=== PATIENT | female | born 1940 | race Caucasian/White ===

== ENCOUNTER 2018-03-05 13:32 | Outpatient (CLI) | payer MEDICARE | END 2018-03-05 13:33 | disposition home or self-care (01) | LOC: BICMAMMO 13:32 | PROVIDERS: ATTEND Internal Medicine | DX: Z12.31 Encounter for screening mammogram for malignant neoplasm of breast (principal); Z85.038 Personal history of other malignant neoplasm of large intestine | CPT/HCPCS: 77063; 77067 ==

== ENCOUNTER 2019-04-06 07:26 | Day surgery (SDC) | payer MEDICARE ==
[2019-04-05 10:54] VITALS: BMI 35.8
--- NOTE | 2019-04-06 11:12 | OP ---
DATE OF PROCEDURE: 04/06/2019 OPERATIVE PROCEDURE: Colonoscopy. PREOPERATIVE DIAGNOSES: A 78-year-old female with a history of colon polyp and previous colonoscopy and polypectomy. She also had a sigmoid colon cancer, status post sigmoid colectomy in 2016. The patient is undergoing followup colonoscopy. POSTOPERATIVE DIAGNOSES: 1. Healthy anastomosis. 2. Mild sigmoid diverticular disease. 3. Hemorrhoids. DESCRIPTION OF PROCEDURE: The patient was placed on her left lateral position and was given sedation by Anesthesia Department. A rectal exam was done before the scope was advanced into the rectum. No lesions felt on rectal exam. A [employer]ax video colonoscope was introduced into the rectum and advanced all the way into the cecum. In the appendicular opening, ileocecal valve, cecum, no pathology seen. The mucosa appears normal throughout the colon with normal vascular pattern. In the appendiceal orifice, ileocecal valve, cecum, no pathology seen. Withdrawal of scope from the cecum to ascending colon, hepatic flexure, no pathology seen. In the transverse colon, splenic flexure, descending colon, no pathology. The anastomotic area appears very healthy. She has few diverticula along the anastomotic area. Rectal hemorrhoids. DISCHARGE PLAN: This is a 78-year-old female with previous colon cancer, status post segmental resection of the colon in 2016. The patient came for a followup colonoscopy. The colonoscopy showed no pathology except for scattered diverticula over the left side and hemorrhoids. DISCHARGE RECOMMENDATION: 1. The patient was advised to call me if she develops abdominal pain, hematochezia. 2. High-fiber diet. 3. Repeat colonoscopy in 10 years. In the absence of any other symptoms, the patient will come back to me in 2 weeks. Job ID: [id number]
[2019-04-06] MEDS ORDERED: PROPOFOL 200 MG/20 ML VIAL ONE (14:26)
== END 2019-04-06 10:50 | disposition home or self-care (01) ==
LOC: SDC 07:26
PROVIDERS: ATTEND Internal Medicine Gastroenterology
PROC: 0DJD8ZZ Inspection of Lower Intestinal Tract, Via Natural or Artificial Opening Endoscopic (ICD-10-PCS; principal; 2019-04-06)
DX: Z12.11 Encounter for screening for malignant neoplasm of colon (principal); K57.30 Diverticulosis of large intestine without perforation or abscess without bleeding; K64.9 Unspecified hemorrhoids; Z85.038 Personal history of other malignant neoplasm of large intestine; Z86.010 Personal history of colon polyps
CPT/HCPCS: 93005; G0105; 93010; J2704

== ENCOUNTER 2019-09-23 10:49 | Outpatient (CLI) | payer MEDICARE ==
--- NOTE | 2019-09-23 12:32 | MRI ---
MR OF THE RIGHT KNEE WITHOUT CONTRAST INDICATION: Right knee osteoarthritis TECHNIQUE: Axial and coronal PD fat sat, sagittal T2 fat sat, sagittal PD turbo spin echo and T1 poli nal images were obtained of the right knee. COMPARISON: Right knee radiograph dated June 16, 2019 FINDINGS: Joint effusion: Mild Semimembranosus-medial gastrocnemius popliteal cyst: None. Ligaments: The ACL, PCL, MCL and LCLC are intact. Extensor mechanism: Intact. Menisci: There is a horizontally oriented tear involving the body and posterior horn of the medial me niscus. There is a horizontally oriented oblique tear involving the body of the lateral meniscus with a displaced meniscal flap seen within the inferior lateral meniscal gutter on image 16 of series 6. There is also a radial tear involving the posterior root of the lateral meniscus with lateral extrusion of the meniscus. Articular cartilage: There is severe diffuse thinning involving the lateral femoral tibial compartmen t. There is moderate diffuse thinning involving the femoral tibial compartment. There is severe thinning involving the medial patellofemoral and median patellar ridge. There are marginal osteophyte s affecting all major compartments of the right knee. Osseous structures: There is reactive marrow edema of the lateral femoral tibial compartment. Popliteus and IT band: Normal. IMPRESSION: 1. Mild to moderate osteoarthrosis of the right knee. 2. Medial and lateral meniscal tears.
== END 2019-09-23 10:50 | disposition home or self-care (01) ==
LOC: SCSMRI 10:49
PROVIDERS: ATTEND Internal Medicine
DX: M17.11 Unilateral primary osteoarthritis, right knee (principal); S83.241A Other tear of medial meniscus, current injury, right knee, initial encounter; S83.281A Other tear of lateral meniscus, current injury, right knee, initial encounter